=== PATIENT | female | born 1990 | race Caucasian/White ===

== ENCOUNTER → 2016-12-02 | Outpatient (CLI) | payer OTHER ==
[~2016-12-02] MED LIST: [UNRECOGNIZED DRUG - REMARK]
== END | disposition home or self-care (01) ==
LOC: LAB 12:20
PROVIDERS: ATTEND Preventive Medicine Preventive Medicine/Occupational Environmental Medicine
DX: Z02.1 Encounter for pre-employment examination (principal)
CPT/HCPCS: 86735; 86762; 86765; 86787

== ENCOUNTER 2018-03-26 23:55 | Emergency (ER) | payer MEDICAID, OTHER ==
[~2018-03-26] VITALS: Ht 172.7 cm; Wt 71.7 kg
[2018-03-27] MEDS ORDERED: ONDANSETRON HCL 4 MG/2 ML VIAL IV ONE (00:15)
[2018-03-27] MEDS ORDERED: HYDROmorphone HCL 2 MG/ML VL IV ONE (00:15)
[2018-03-27] MEDS ORDERED: MECLIZINE HCL 25 MG TAB PO ONE (02:45)
[2018-03-27 03:18] VITALS: BP 106/67
[2018-03-27] MEDS ORDERED: HYDROcodone-ACET 10/325MG TAB PO ONE (04:00)
== END 2018-03-27 04:38 | disposition home or self-care (01) ==
LOC: ER 03-27 00:02
DX: G43.909 Migraine, unspecified, not intractable, without status migrainosus (principal)
CPT/HCPCS: 70450; 81025; 96374; 96375; 99284; J1170; J2405

== ENCOUNTER 2023-03-09 12:02 | Emergency (ER) | payer OTHER, MEDICAID ==
[~2023-03-09] VITALS: Ht 172.7 cm; Wt 74.0 kg
[2023-03-09 13:56] VITALS: TEMP 97.8; O2SAT 97
[2023-03-09] MEDS ORDERED: HYDROcodone-ACET 10/325MG TAB PO ONE (14:00)
[2023-03-09] MEDS ORDERED: LORazepam 2MG/ML-1ML VIAL IV ONE (14:15)
[2023-03-09] MEDS ORDERED: HYDROmorphone HCL 2 MG/ML VL/or syr IV ONE (14:15)
[2023-03-09 14:46] VITALS: BP 121/89; PULSE 92; RESP 18
[2023-03-09] MEDS ORDERED: PERCOT PO ×2 (16:15)
[2023-03-09] MEDS ORDERED: IBUP-1455 PO ×2 (16:15)
[2023-03-10] MEDS ORDERED: PERCOT PO (15:39)
[2023-03-10] MEDS ORDERED: IBUP-1455 PO (15:39)
== END 2023-03-09 16:24 | disposition home or self-care (01) ==
LOC: ER 12:02
DX: M47.896 Other spondylosis, lumbar region (principal); M51.26 Other intervertebral disc displacement, lumbar region; M54.42 Lumbago with sciatica, left side; M54.41 Lumbago with sciatica, right side; Z79.899 Other long term (current) drug therapy
CPT/HCPCS: 72148; 96374; 96375; 99285; J1170; J2060